=== PATIENT | female | born 2000 | race Caucasian/White ===

== ENCOUNTER 2023-05-31 10:10 | Emergency (ER) | payer MEDICAID, SELFPAY ==
[2023-05-31] VITALS (34 sets, daily range): BP systolic 110–152; BP diastolic 49–83; PULSE 78–113; RESP 8–36; TEMP 36.2; O2SAT 98–100
--- NOTE | 2023-05-31 10:00 | RT.EKG_ITS ---
APPROVED REPORT Exam: Resting ECG Reason for Exam: palpitations Patient Location: E HR:99 bpm ECG Measurements Heart Rate 99 AXIS GA 140 P 37 QRSd 88 QRS -24 QT 355 T 9 QTc 455 Conclusion Sinus rhythm...normal P axis, V-rate 60- 99 sinus rhythm, normal axis, normal intervals, non ischemic
--- NOTE | 2023-05-31 10:36 | ED.GENADUL_ITS ---
Discharge Plan Disposition Patient Disposition: Home Discharge Details Chief Complaint: Palpitatns Clinical Impression: Chest pain Primary Care Provider: Unknown,Unknown ED Provider: Dario Chow Home Meds and New Rx's Prescriptions: No Action citalopram 10 mg Tablet 10 mg PO DAILY Linzess 145 mcg Capsule 145 mcg PO DAILY Discharge Instructions Instructions: Chest Pain (ED) Additional Instructions: Please follow-up with primary care physician. Please return to the emergency department for any worsening Medical Decision Making 23-year-old female presents with palpitations/rapid heartbeat over the last week, associated mild shortness of breath, recently had Nexplanon implant removed. No history of thromboembolic disease. Has recently been started on linaclotide as a pro motile agent. Noted to be in sinus tachycardia on monitor and EKG. Hemodynamically stable, no shortness of breath. Consider electrolyte derangement versus dehydration in the setting of pro motile agent versus PE versus pericarditis versus myocarditis versus pleurisy lower suspicion for p neumonia or pneumothorax or aortic pathology. Will obtain screening labs imaging fluids close reassessment 13: 56 patient resting comfortably no acute distress. Heart rate has normalized to the 90s. No evidence of PE. No evidence of infection. Consider mild dehydration in the setting of promotal agent versus pleurisy. Low suspicion for deirdre or pericarditis given history physical EKG and lab work. Patient feeling better after Toradol. Instructed to continue with hydration at home and ibuprofen as needed. Home care instructions and return precautions given HPI General Date/Time Provider Initiated Documentation: 05/31/23 10:10 . HPI Narrative: 23-year-old female presents with fast heart rate/palpitations over the last couple of days associate with left-sided chest discomfort and shortness of breath. Her Nexplanon implant was removed a few weeks ago. No history of t hromboembolic disease. No history of coronary disease. Patient recently started on Linzess as a promotility agent. Related Data Home Medications Medication Instructions Recorded Confirmed citalopram 10 mg tablet 10 mg PO DAILY 05/31/23 05/31/23 linaclotide 145 mcg capsule 145 mcg PO DAILY 05/31/23 05/31/23 (Linzess) Allergies Allergy/AdvReac Type Severity Reaction Status Date / Time pork derived (porcine) Allergy Swelling/Ed Unverified 05/31/23 10:17 enoc General Stated Complaint: Palpitatns DAVION: 3 Review of Systems Narrative: Review of Systems Constitutional: negative Eyes: negative ENT: negative Cardiovascular: Chest pain Respiratory: Shortness of breath Gastrointestinal: negative : negative Musculoskeletal: negative Skin: negative Neurologic: negative Psych: negative PFSH All Active Problems (Updated 05/31/23 @ 13:57 by Dario Chow MD) Chest pain (Acute) Social History Smoking risk assessment performed?: No Exam Narrative Exam Narrative: Physical Examination General: alert, awake, cooperative, resting comfortably, no acute distress HEENT: normocephalic, atraumatic; PERRL, EOM intact, conjunctiva normal; no nasal discharge; moist mucous membranes, oral and pharyngeal mucosa normal, tolerating secretions Neck: supple, trachea midline; full ROM Chest: normal to inspection Respiratory: normal respiratory effort, speaking in full sentences, clear to auscultation, no wheezing, rales or rhonchi Cardiac: Tachycardia, regular rhythm, S1S2 intact, no murmurs rubs or gallops GI: abdomen soft, non-tender, non-distended; no palpable mass or hepatosplenomegaly Skin: no lesions, rashes or trauma appreciated Neuro: AAOx3, normal speech, moving all extremities Psych: Appropriate mood and affect Course Vital Signs Vital signs: Vital Signs Temperature 36.2 C L 05/31/23 10:13 Pulse 112 H 05/31/23 10:13 Respiratory Rate 05/31/23 10:13 Blood Pressure 133/64 05/31/23 10:13 Pulse Oximetry 100 05/31/23 10:13 Temperature 36.2 C L 05/31/23 10:13 Temperature Source Skin 05/31/23 10:13 Pulse 112 H 05/31/23 10:13 Respiratory Rate 05/31/23 10:13 Blood Pressure 133/64 05/31/23 10:13 Blood Pressure Position Sitting 05/31/23 10:13 Pulse Oximetry 100 05/31/23 10:13 Oxygen Delivery Method Room Air 05/31/23 10:13 Oxygen Flow Rate 0 05/31/23 10:13 Pain Level 0 05/31/23 10:13
[2023-05-31 10:47] LABS: Abs Immature Grans 0.01 10^3/uL (0.0-0.06); Absolute Basophil Count 0.01 10^3/uL (0.0-0.2); Absolute Eosinophil Count 0.11 10^3/uL (0.0-0.7); Absolute Lymphocyte Count 1.64 10^3/uL (1.2-3.4); Absolute Monocyte Count 0.41 10^3/uL (0.1-0.8); Absolute Neutrophil Count 5.45 10^3/uL (1.2-6.7); Basophils % 0.1; Eosinophils % 1.4; HCT 39.4 % (36.0-46.0); HGB 13.1 g/dL (11.2-15.7); Immature Grans % 0.1; Lymphocytes % 21.5; MCH 25.6 pg (27.0-33.0); MCHC 33.2 % (32.0-36.0); MCV 77 fL (80-95); MPV 8.9 fL (8.0-11.0); Monocytes % 5.4; Neutrophils % 71.5; Platelet Count 307 10^3/uL (130-400); RBC 5.11 10^6/uL (3.93-5.22); RDW 13.6 % (11.7-14.6); RDW-SD 38.1 fL; WBC 7.63 10^3/uL (4.4-10.8)
[2023-05-31] MEDS: Normal Saline 1,000 ML 1000 ML IV (10:59)
[2023-05-31] MEDS: Ketorolac 15 MG/ML VIAL IVP (10:59)
[2023-05-31 11:00] LABS: PTT Activated 31.6 sec (21.5-31.9); Prothrombin Time 9.7 sec (9.3-11.0)
[2023-05-31 11:22] LABS: ALT 26 U/L (14-59); AST 22 U/L (15-37); Albumin 3.9 g/dL (3.4-5.0); Alkaline Phosphatase 75 U/L (46-116); Anion Gap 10.2 mmol/L (3-11); BUN 7 mg/dL (7-18); Bilirubin, Total 0.6 mg/dL (0.2-1.0); CO2 24.8 mmol/L (21.0-32.0); CREATININE 0.8 mg/dL (0.55-1.02); Calcium 9.7 mg/dL (8.5-10.1); Chloride 103 mmol/L (98-107); Estimated GFR 106.77 (mL/min/1.73m2); Glucose 101 mg/dL (74-106); Magnesium 1.8 mg/dL (1.8-2.4); NT-proBNP 21 pg/mL (<300); Potassium 4.2 mmol/L (3.5-5.1); Sodium 138 mmol/L (136-145); TSH (W/Ref FT4) 4.19 uIU/mL (0.36-3.74); Total Protein 8.4 g/dL (6.4-8.2)
[2023-05-31 11:23] LABS: Troponin I < 50 ng/L (<or=60)
[2023-05-31 11:38] LABS: FREE T4 0.78 ng/dL (0.76-1.46)
[2023-05-31] MEDS: Normal Saline - Diluent 50 ML VIAL IJ (11:45)
--- NOTE | 2023-05-31 11:45 | DI.CT_ITS ---
Exam(s) CT CHEST PE CTA EXAM: CT CHEST PE CTA CLINICAL HISTORY: left pleuritic chest pain, recent control. TECHNIQUE: Imaging Protocol: Axial CT angiography was performed with multi-slice acquisition and mu lti-planar reconstructions as well as axial, coronal and sagittal MIP reconstructions. CONTRAST MATERIAL: Intravenous: Omnipaque 350 Contrast volume:100 ml COMPARISON: No exams were available for comparison FINDINGS: Pulmonary Arteries: No evidence of filling defect to suggest pulmonary emboli. Tracheobronchial tree: Patent where visualized. Mediastinum and Bernie: No dominant adenopathy or fluid collection. Pulmonary parenchyma: No consolidation or dominant measurable mass. Pleura: No effusion or pneumothorax. Heart: The heart is not dilated. No coronary artery calcifications are seen. Aorta: Thoracic aorta non-dilated. No aneurysm. No dissection. Upper abdomen: Unremarkable. Bones: Unremarkable for age. Tubes, Catheters, and Lines: None IMPRESSION: No evidence of pulmonary embolism. No acute abnormality. RADIATION DOSE DELIVERED: 400.3mGy.cm Total DLP DATA REPOSITORY: All CT scans at this facility are submitted to the National Radiology Data Registry (NRDR) Dose Index Registry (DIR) with the [employer] ([employer]). RADIATION OPTIMIZATION: All CT scans at this facility use at least one of these dose optimization te chniques: automated exposure control; mA and/or kV adjustment per patient size (includes targeted exa ms where dose is matched to clinical indication); or iterative reconstruction.
[2023-05-31] MEDS: Omnipaque 350 MG/ML 100 ML BTL IJ (11:46)
[2023-05-31 12:39] LABS: Bilirubin Negative (Negative); Blood Large (Negative); Clarity Clear (Clear); Glucose Negative (Negative); Ketones Negative (Negative); Leukocyte Esterase Negative (Negative); Nitrite Negative (Negative)
[2023-05-31 12:46] LABS: WBC 0-2 HPF (0-5)
[2023-05-31 12:47] LABS: Bacteria Negative HPF (Negative); C & S Indicated? No; Casts Negative LPF (Negative); Crystals Negative HPF (Negative); Epithelial Cells Few HPF (Negative); Mucus Negative (Negative)
[2023-05-31 12:56] LABS: *AMPHETAMINES SCREEN URINE Negative (Negative); *BARBITURATES SCREEN URINE Negative (Negative); *BENZODIAZEPINES SCREEN URINE Negative (Negative); Cannabinoids THC Negative (Negative); Cocaine Screen,Urine Negative (Negative); METHADONE URINE SCREEN Negative (Negative); OPIATES URINE SCREEN Negative (Negative); Tricyclic Antidepressants Negative (Negative)
[2023-05-31 14:00] LABS: Troponin I < 50 ng/L (<or=60)
== END 2023-05-31 14:18 | disposition home or self-care (01) ==
PROVIDERS: Emergency Provider Emergency Medicine
DX: R00.2 Palpitations (principal); R06.02 Shortness of breath; Z79.899 Other long term (current) drug therapy
CPT/HCPCS: 36415; 71275; 80053; 80307; 93005; 96361; 96374; 99285; 81003; 81015; 83735; 83880; 84439; 84443; 84484; 85025; 85610; 85730; 93010; 99284; J1885; J3490